=== PATIENT | female | born 1955 | race Caucasian/White ===

== ENCOUNTER 2019-06-15 11:00 | Day surgery (SDC) | payer BC ==
[2019-06-14 08:32] VITALS: BMI 34.7
[~2019-06-15 11:00] MED LIST: EPINEPHrine 0.3 MG, Dextrose 50% 3 ML in Ophthalmic Irrigation Solution 500 ML FS SCH
[2019-06-15] MEDS ORDERED: Phenylephrine 2.5% Ophth Soln 5 ML BOT ONE (12:52)
[2019-06-15] MEDS ORDERED: Cyclopentolate 1% Opth Drop 2 ML BOT ONE (12:52)
[2019-06-15] MEDS ORDERED: hydrALAZINE 20 MG/ML VIAL ONE (12:58)
[2019-06-15] MEDS ORDERED: Indocyanine Green 25 MG/10 ML VIAL ONE (13:09)
[2019-06-15] MEDS ORDERED: Triamcinolone 40 MG/ML VIAL ONE (13:09)
[2019-06-15] MEDS ORDERED: PROPOFOL 200 MG/20 ML VIAL ONE (13:09)
[2019-06-15] MEDS ORDERED: Lidocaine 1% PF 5 ML VIAL ONE ×2 (13:09)
[2019-06-15] MEDS ORDERED: Bupivacaine 10 ML VIAL ONE (13:09)
[2019-06-15] MEDS ORDERED: Maxitrol 0.1% Opth Oint 3.5 GM TUBE ONE (13:09)
[2019-06-15] MEDS ORDERED: Lidocaine 4% PF 5 ML AMP ONE (13:09)
[2019-06-15] MEDS ORDERED: CEFAZOLIN 1 GM VIAL ONE (13:09)
[2019-06-15] MEDS ORDERED: Fentanyl 100 MCG/2 ML VIAL ONE (13:26)
[2019-06-15] MEDS ORDERED: Midazolam HCl 2 mg/2 ml Vial ONE (13:26)
--- NOTE | 2019-06-15 21:56 | OP ---
DATE OF PROCEDURE: 06/15/2019 PRINCIPAL PREOPERATIVE DIAGNOSES: 1. Epiretinal membrane, left eye. 2. Proliferative diabetic retinopathy, left eye. POSTOPERATIVE DIAGNOSES: 1. Epiretinal membrane, left eye. 2. Proliferative diabetic retinopathy, left eye. PROCEDURES PERFORMED: 1. 25-gauge pars plana vitrectomy, left eye. 2. Epiretinal membrane/internal limiting membrane removal, left eye. 3. Endolaser panretinal photocoagulation, left eye. ESTIMATED BLOOD LOSS: None. SPECIMENS REMOVED: None. COMPLICATIONS: None. ANESTHESIA: MAC with retrobulbar block. DESCRIPTION OF PROCEDURE: The patient was identified in the preoperative holding area, where the correct eye being the left eye was marked for surgery. The patient was taken to the operating room, where MAC anesthesia was induced. A retrobulbar block was administered to the left eye. The block consisted of 1:1 ratio of 4% lidocaine and 0.75% Marcaine. A total of 5 mL was administered. The left eye was then prepped and draped in the usual sterile ophthalmic fashion for surgery. A wire lid speculum was placed. A standard 25-gauge pars plana vitrectomy platform was fashioned with trocars placed approximately 3.5 mm from the limbus. The infusion was noted to be within the vitreous cavity prior to being turned on to an infusion pressure of 30 mmHg. A light pipe Micro vitrector was introduced into the eye under visualization with a Owingo viewing system. A careful core vitrectomy was performed followed by injection of Kenalog. A gentle posterior vitreous detachment was subsequently created. Subsequently, a complete peripheral shave vitrectomy was performed. Following vitrectomy, ICG dye was used to stain the internal limiting membrane. Using the Wood ILM Forceps, an internal limiting membrane/epiretinal proliferation complex was gently removed in a circumferential fashion about the fovea. The peel extended approximately 2 disc diameters in radius from the fovea circumferentially. Following peeling, the Micro vitrector was re-introduced into the eye to remove any residual vitreous debris. The Endolaser was used to provide panretinal photocoagulation with sparing of the 3 and 9 o'clock meridians. The cannulas were sequentially removed, and all sclerotomies were noted to be watertight. Subconjunctival Ancef and Kenalog were injected. The wire lid speculum was removed followed by application of Tobradex ophthalmic ointment and light patch and shield. The patient tolerated the procedure well and was taken to the outpatient recovery area in good condition. Job ID: [id number]
== END 2019-06-15 15:25 | disposition home or self-care (01) ==
LOC: SDC 11:00
PROVIDERS: ATTEND Ophthalmology Retina Specialist
PROC: 08NF3ZZ Release Left Retina, Percutaneous Approach (ICD-10-PCS; principal; 2019-06-15)
PROC: 08T53ZZ Resection of Left Vitreous, Percutaneous Approach (ICD-10-PCS; principal; 2019-06-15)
DX: H35.372 Puckering of macula, left eye (principal); E11.3592 Type 2 diabetes mellitus with proliferative diabetic retinopathy without macular edema, left eye; Z79.84 Long term (current) use of oral hypoglycemic drugs; Z79.899 Other long term (current) drug therapy
CPT/HCPCS: J0171; J0360; J0690; J2001; J2250; J2704; J3010; J3301; J3490

== ENCOUNTER 2022-08-05 10:36 | Outpatient (CLI) | payer MEDICARE | END 2022-08-05 10:37 | disposition home or self-care (01) | LOC: SCSRAD 10:36 | PROVIDERS: ATTEND Physician Assistant | DX: R07.81 Pleurodynia (principal) ==